=== PATIENT | female | born 1955 | race Caucasian/White ===

== ENCOUNTER 2016-12-27 22:49 | Emergency (ER) | payer MEDICARE, OTHER ==
[2016-12-27 23:04] VITALS: TEMP 98
[2016-12-28 00:41] LABS: BASOPHILS % (AUTO) 0 % (0-3); EOSINOPHILS % (AUTO) 1 % (0-9); HEMATOCRIT 43 % (35-47); MEAN CORPUSCULAR HGB CONC 33.1 gm/dl (32.0-36.0); MEAN CORPUSCULAR VOLUME 83 fL (81-99); MONOCYTES % (AUTO) 6.6 % (0-12); NEUTROPHILS % (AUTO) 78.5 % (37-80)
[2016-12-28 00:55] LABS: ALBUMIN 3.9 gm/dl (3.4-5.0); POTASSIUM 4.2 mMol/L (3.5-5.1)
[2016-12-28 01:02] LABS: APPEARANCE,URINE Clear; BILIRUBIN,URINE NEGATIVE (NEGATIVE); COLOR,URINE Yellow; GLUCOSE, URINE (UA) NEGATIVE (NEGATIVE); KETONES,URINE NEGATIVE (NEGATIVE); LEUKOCYTE ESTERASE ,URINE 1+ (NEGATIVE); NITRATE,URINE NEGATIVE (NEGATIVE); OCCULT BLOOD,URINE NEGATIVE (NEG-TRACE); PH,URINE 6.5; UROBILINOGEN,URINE 0.2 (0.2-1.0 EU)
[2016-12-28 01:12] LABS: RBC,URINE 0-1 (0-3AV/HPF); WBC,URINE 0-5 (0-5AV/HPF)
[2016-12-28 02:53] VITALS: O2SAT 100
[2016-12-28 02:55] VITALS: BP 141/79; PULSE 88; RESP 18
== END 2016-12-28 01:40 | disposition home or self-care (01) | DRG 149 ==
LOC: ED 22:49
DX: R42 Dizziness and giddiness (principal)
CPT/HCPCS: 36415; 80053; 81001; 85025; 99282; 99283

== ENCOUNTER 2017-04-30 16:43 | Emergency (ER) | payer MEDICARE, OTHER ==
[2017-04-30] MEDS ORDERED: LORAZEPAM 0.5 MG TAB PO ONE (16:59)
[2017-04-30] MEDS ORDERED: LORAZEPAM 0.5 MG TAB ONE (17:00)
[2017-04-30 17:12] VITALS: RESP 20
[2017-04-30 17:16] LABS: BASOPHILS % (AUTO) 0 % (0-3); EOSINOPHILS % (AUTO) 0 % (0-9); HEMATOCRIT 39 % (35-47); MEAN CORPUSCULAR HGB CONC 34.4 gm/dl (32.0-36.0); MEAN CORPUSCULAR VOLUME 83 fL (81-99); MONOCYTES % (AUTO) 4.5 % (0-12); NEUTROPHILS % (AUTO) 83.8 % (37-80)
[2017-04-30 17:30] LABS: CALCIUM 9.3 mg/dl (8.5-10.1); POTASSIUM 3.9 mMol/L (3.5-5.1)
[2017-04-30 17:32] LABS: APPEARANCE,URINE Clear; BILIRUBIN,URINE NEGATIVE (NEGATIVE); COLOR,URINE Yellow; GLUCOSE, URINE (UA) NEGATIVE (NEGATIVE); KETONES,URINE NEGATIVE (NEGATIVE); LEUKOCYTE ESTERASE ,URINE 2+ (NEGATIVE); NITRATE,URINE NEGATIVE (NEGATIVE); OCCULT BLOOD,URINE NEGATIVE (NEG-TRACE); UROBILINOGEN,URINE 0.2 (0.2-1.0 EU)
[2017-04-30 17:42] LABS: RBC,URINE 0-1 (0-3AV/HPF)
[2017-04-30] MEDS ORDERED: QUETIAPINE FUMARATE 25 MG TAB ONE (18:25)
[2017-04-30] MEDS ORDERED: QUETIAPINE FUMARATE 25 MG TAB PO SCH (18:30)
[2017-04-30 19:04] VITALS: BP 146/92; PULSE 92; TEMP 98; O2SAT 98
== END 2017-04-30 18:56 | disposition home or self-care (01) | DRG 880 ==
LOC: ED 16:43
DX: F41.9 Anxiety disorder, unspecified (principal); R30.0 Dysuria; R82.90 Unspecified abnormal findings in urine
CPT/HCPCS: 80048; 81001; 85025; 87088; 93005; 99283; 99284

== ENCOUNTER 2017-05-02 19:25 | Emergency (ER) | payer MEDICARE, OTHER ==
[2017-05-02] MEDS ORDERED: LORAZEPAM 0.5 MG TAB PO ONE (19:39)
[2017-05-02 19:45] VITALS: TEMP 98.5
[2017-05-02 19:46] VITALS: RESP 18; O2SAT 97
[2017-05-02] MEDS ORDERED: LORAZEPAM 0.5 MG TAB ONE ×2 (19:49→19:54)
[2017-05-02 20:02] LABS: BASOPHILS % (AUTO) 1 % (0-3); EOSINOPHILS % (AUTO) 0 % (0-9); HEMATOCRIT 37 % (35-47); MEAN CORPUSCULAR HGB CONC 35.6 gm/dl (32.0-36.0); MEAN CORPUSCULAR VOLUME 83 fL (81-99); MONOCYTES % (AUTO) 7.1 % (0-12); NEUTROPHILS % (AUTO) 74.1 % (37-80)
[2017-05-02] MEDS ORDERED: DIPHENHYDRAMINE 50 MG/ML SOL IV ONE (20:02)
[2017-05-02 20:15] LABS: CALCIUM 8.9 mg/dl (8.5-10.1); POTASSIUM 3.6 mMol/L (3.5-5.1); THYROID STIMULATING HORMONE 1.19 uIU/ml (0.358-3.740)
[2017-05-02] MEDS ORDERED: DIPHENHYDRAMINE 25 MG CAP PO ONE (20:17)
[2017-05-02] MEDS ORDERED: DIPHENHYDRAMINE 25 MG CAP ONE (20:18)
[2017-05-02 20:33] VITALS: BP 149/89; PULSE 67
== END 2017-05-02 22:50 | disposition home or self-care (01) | DRG 392 ==
LOC: ED 19:25
DX: K59.00 Constipation, unspecified (principal); F41.9 Anxiety disorder, unspecified; K44.9 Diaphragmatic hernia without obstruction or gangrene
CPT/HCPCS: 36415; 74177; 80048; 84443; 85025; 99283; Q9967

== ENCOUNTER 2018-01-23 08:39 | Emergency (ER) | payer MEDICARE, OTHER ==
[2018-01-23 08:50] VITALS: TEMP 97.6
[2018-01-23] MEDS ORDERED: ONDANSETRON HCL 4 MG/2 ML SOL IV ONE (09:02)
[2018-01-23] MEDS ORDERED: ONDANSETRON HCL 4 MG/2 ML SOL ONE (09:03)
[2018-01-23] MEDS: SODIUM CHLORIDE 0.9% FLUSH 10 ML SOL IV PRN ×2 (09:05→10:19)
[2018-01-23 09:31] LABS: BASOPHILS % (AUTO) 0 % (0-3); EOSINOPHILS % (AUTO) 3 % (0-9); HEMATOCRIT 41 % (35-47); HEMOGLOBIN 12.9 gm/dl (12.0-15.5); LYMPHOCYTES % (AUTO) 20.92 % (10-50); MEAN CORPUSCULAR HEMOGLOBIN 28.8 pg (27.0-32.0); MEAN CORPUSCULAR HGB CONC 31.7 gm/dl (32.0-36.0); MEAN CORPUSCULAR VOLUME 91 fL (81-99); MONOCYTES % (AUTO) 8.9 % (0-12); NEUTROPHILS % (AUTO) 66.5 % (37-80)
[2018-01-23 09:50] LABS: ALBUMIN 3.3 gm/dl (3.4-5.0); ALKALINE PHOSPHATASE 80 IU/L (46-116); ALT 34 IU/L (14-63); AST 22 IU/L (15-37); BILIRUBIN,TOTAL 0.3 mg/dl (0.2-1.0); BLOOD UREA NITROGEN 19 mg/dl (7-18); CALCIUM 9.1 mg/dl (8.5-10.1); CHLORIDE 101 mMol/L (98-107); GLUCOSE 132 mg/dl (74-106); POTASSIUM 4.5 mMol/L (3.5-5.1); SODIUM 136 mMol/L (136-145); TOTAL PROTEIN 6.6 gm/dl (6.4-8.2)
[2018-01-23 09:59] LABS: CARBON DIOXIDE 28.4 mEq/L (21-32)
[2018-01-23] MEDS ORDERED: PROCHLORPERAZINE EDISYLATE 5 MG/ML SOL IV ONE (10:15)
[2018-01-23] MEDS ORDERED: PROCHLORPERAZINE EDISYLATE 5 MG/ML SOL ONE (10:16)
[2018-01-23 10:59] LABS: TROP I < 0.017 ng/ml (0.000-0.056)
[2018-01-23 11:46] VITALS: BP 153/92; PULSE 91; RESP 20; O2SAT 99
== END 2018-01-23 11:40 | DRG 316 ==
LOC: ED 08:39
DX: I95.9 Hypotension, unspecified (principal)
CPT/HCPCS: 36415; 80053; 83880; 84484; 85025; 93005; 96374; 96375; 99284; 99285; J0780; J2405

== ENCOUNTER 2018-09-12 11:19 | Day surgery (SDC) | payer MEDICARE, MEDICAID ==
[2018-09-12 11:55] VITALS: RESP 16
[2018-09-12] MEDS: TROPICAMIDE 1% OPHTH SOL ONE ×2 (11:55→12:05)
[2018-09-12] MEDS: CYCLOPENTOLATE 1% SOL ONE ×3 (11:55→12:04)
[2018-09-12] MEDS: PHENYLEPHRINE HCL 10% OPHTHAL SOL ONE ×3 (11:55→12:04)
[2018-09-12] MEDS ORDERED: MOXIFLOXACIN-HOME SOL RIGHTEYE ONE ×2 (11:56→11:58)
[2018-09-12] MEDS ORDERED: KETOROLAC/HOME 0.5% SOL RIGHTEYE ONE ×4 (11:56→12:05)
[2018-09-12] MEDS ORDERED: MIDAZOLAM 2 MG/2 ML SOL ONE (12:00)
[2018-09-12] MEDS ORDERED: FENTANYL 100MCG/2ML SOL ONE (12:00)
[2018-09-12] MEDS: TETRACAINE HCL 0.5 % 1 DROP SOL ONE ×2 (12:06→12:53)
[2018-09-12] MEDS ORDERED: LIDOCAINE HCL 2% MPF 10 ML SOL ONE (12:45)
[2018-09-12] MEDS ORDERED: POVIDONE IODINE 5% SOL ONE (12:45)
[2018-09-12] MEDS ORDERED: BSS W/ 0.5 MG P.F. EPI 1 BOTTLE ONE (12:46)
[2018-09-12] MEDS ORDERED: ACETAZOLAMIDE 250 MG PO ONE (12:49)
[2018-09-12 13:25] VITALS: BP 159/104; PULSE 94; TEMP 97.2; O2SAT 95
== END 2018-09-12 13:37 | disposition home or self-care (01) | DRG 125 ==
LOC: SURG 11:19
PROVIDERS: ATTEND Ophthalmology
DX: H25.89 Other age-related cataract (principal)
CPT/HCPCS: J2250; J3010; A9270-GY

== ENCOUNTER 2018-11-14 12:58 | Day surgery (SDC) | payer MEDICARE, MEDICAID ==
[2018-11-14 13:19] VITALS: RESP 18
[2018-11-14] MEDS: TROPICAMIDE 1% OPHTH SOL ONE ×3 (13:19→13:26)
[2018-11-14] MEDS: PHENYLEPHRINE HCL 10% OPHTHAL SOL ONE ×3 (13:19→13:25)
[2018-11-14] MEDS: CYCLOPENTOLATE 1% SOL ONE ×3 (13:19→13:26)
[2018-11-14] MEDS: KETOROLAC/HOME 0.5% SOL LEFTEYE ONE ×2 (13:20→13:26)
[2018-11-14] MEDS ORDERED: MOXIFLOXACIN-HOME SOL LEFTEYE ONE ×2 (13:20→13:22)
[2018-11-14] MEDS ORDERED: KETOROLAC/HOME 0.5% SOL LEFTEYE ONE (13:22)
[2018-11-14] MEDS: TETRACAINE HCL 0.5 % 1 DROP SOL ONE ×2 (13:26→15:20)
[2018-11-14] MEDS ORDERED: MIDAZOLAM 2 MG/2 ML SOL ONE (14:22)
[2018-11-14] MEDS ORDERED: POVIDONE IODINE 5% SOL ONE (15:08)
[2018-11-14] MEDS ORDERED: BSS W/ 0.5 MG P.F. EPI 1 BOTTLE ONE (15:08)
[2018-11-14] MEDS ORDERED: LIDOCAINE HCL 2% MPF 10 ML SOL ONE (15:08)
[2018-11-14] MEDS ORDERED: LABETALOL HYDROCHLORIDE 5 MG/ML SOL IV ONE (15:21)
[2018-11-14] MEDS ORDERED: ACETAZOLAMIDE 250 MG PO ONE (15:39)
[2018-11-14 15:44] VITALS: BP 161/84; PULSE 104; TEMP 97.8; O2SAT 96
[2018-11-14] MEDS ORDERED: ONDANSETRON HCL 4 MG/2 ML SOL ONE (15:48)
== END 2018-11-14 16:00 | disposition home or self-care (01) | DRG 125 ==
LOC: SURG 12:58
PROVIDERS: ATTEND Ophthalmology
DX: H25.89 Other age-related cataract (principal)
CPT/HCPCS: J2250; J2405; A9270-GY; J3490

== ENCOUNTER 2019-01-09 09:01 | Emergency (ER) | payer MEDICARE, MEDICAID ==
[2019-01-09 09:13] VITALS: TEMP 97.2
[2019-01-09] MEDS ORDERED: ONDANSETRON HCL 4 MG/2 ML SOL ONE (09:13)
[2019-01-09] MEDS ORDERED: ONDANSETRON HCL 4 MG/2 ML SOL IV ONE (09:13)
[2019-01-09] MEDS ORDERED: PROMETHAZINE HYDROCHLORIDE 25 MG/ML SOL IV ONE (09:27)
[2019-01-09] MEDS ORDERED: SODIUM CHLORIDE 0.9% 1000ML 1,000 ML IV ONE (09:27)
[2019-01-09] MEDS ORDERED: PROMETHAZINE HYDROCHLORIDE 25 MG/ML SOL ONE (09:33)
[2019-01-09 10:40] LABS: BASOPHILS % (AUTO) 0 % (0-3); EOSINOPHILS % (AUTO) 0 % (0-9); HEMATOCRIT 48 % (35-47); HEMOGLOBIN 15.1 gm/dl (12.0-15.5); LYMPHOCYTES % (AUTO) 10.2 % (10-50); MEAN CORPUSCULAR HEMOGLOBIN 27.5 pg (27.0-32.0); MEAN CORPUSCULAR HGB CONC 31.1 gm/dl (32.0-36.0); MEAN CORPUSCULAR VOLUME 88 fL (81-99); MONOCYTES % (AUTO) 6.7 % (0-12); NEUTROPHILS % (AUTO) 82.4 % (37-80)
[2019-01-09 11:01] LABS: ALBUMIN 3.7 gm/dl (3.4-5.0); ALKALINE PHOSPHATASE 88 IU/L (46-116); ALT 28 IU/L (14-63); AST 23 IU/L (15-37); BILIRUBIN,TOTAL 0.3 mg/dl (0.2-1.0); BLOOD UREA NITROGEN 15 mg/dl (7-18); CALCIUM 9.1 mg/dl (8.5-10.1); CARBON DIOXIDE 27.5 mEq/L (21-32); CHLORIDE 100 mMol/L (98-107); CREATININE 0.93 mg/dl (0.60-1.00); GLUCOSE 144 mg/dl (74-106); SODIUM 135 mMol/L (136-145); TOTAL PROTEIN 7.7 gm/dl (6.4-8.2); TROP I < 0.017 ng/ml (0.000-0.056)
[2019-01-09 12:48] LABS: APPEARANCE,URINE Clear; BILIRUBIN,URINE NEGATIVE (NEGATIVE); COLOR,URINE Light yellow; GLUCOSE, URINE (UA) NEGATIVE (NEGATIVE); KETONES,URINE NEGATIVE (NEGATIVE); LEUKOCYTE ESTERASE ,URINE 1+ (NEGATIVE); NITRATE,URINE NEGATIVE (NEGATIVE); OCCULT BLOOD,URINE TRACE INTACT (NEG-TRACE); UROBILINOGEN,URINE 0.2 (0.2-1.0 EU)
[2019-01-09 13:07] LABS: EPITHELIAL CELLS 0-2 (SQUAMOUS)
[2019-01-09 13:08] LABS: BACTERIA TRACE (< 1+); CRYSTALS NEGATIVE (0-3 AVE/HPF)
[2019-01-09] MEDS ORDERED: BUSPIRONE HCL 5 MG TAB PO ONE (15:25)
[2019-01-09] MEDS ORDERED: BUSPIRONE HCL 5 MG TAB ONE (15:38)
[2019-01-09 16:57] VITALS: BP 160/100; PULSE 108; RESP 20; O2SAT 97
== END 2019-01-09 16:05 | disposition short-term general hospital (02) | DRG 563 ==
LOC: ED 09:01
DX: S82.851A Displaced trimalleolar fracture of right lower leg, initial encounter for closed fracture (principal); R42 Dizziness and giddiness; R55 Syncope and collapse; W18.30XA Fall on same level, unspecified, initial encounter
CPT/HCPCS: 29515; 36415; 70450; 73610; 80053; 81001; 84484; 85025; 93005; 96365; 96374; 96375; 99212; 99285; G0390; J2405; J2550; A9270-GY